=== PATIENT | female | born 1955 | race Caucasian/White ===

== ENCOUNTER 2023-04-08 18:57 | Emergency (ER) | payer MEDICARE ==
[~2023-04-08] VITALS: Ht 162.6 cm; Wt 50.0 kg
[2023-04-08] MEDS ORDERED: NS 1,500 ML in IV 1 EA IV ONE (19:15)
[2023-04-08 19:59] LABS: C REACTIVE PROTEIN QUANTITATIV 19.8 MG/DL (<1.0)
[2023-04-08] MEDS ORDERED: ONDANSETRON 4MG 2ML VIAL IV ONE (20:00)
[2023-04-08] MEDS ORDERED: KETOROLAC 30 MG/ML 1ML VIAL IV ONE (20:00)
[2023-04-08 20:01] LABS: ALBUMIN 2.6 G/DL (3.2-5.2); BILIRUBIN,DIRECT 0.3 MG/DL (<0.4); BILIRUBIN,TOTAL 0.9 MG/DL (0.3-1.2); CALCIUM LEVEL 8.9 MG/DL (8.3-10.6); CREATININE FOR GFR 1.54 MG/DL (0.55-1.30); GLOMERULAR FILTRATION RATE 35.7 (>45); HEMATOCRIT 39.3 % (36.0-47.0); HEMOGLOBIN 12.4 g/dl (12.0-15.5); MEAN CORPUSCULAR HGB CONC 31.6 g/dl (32.0-36.5); MEAN CORPUSCULAR VOLUME 94.9 fl (80.0-96.0); POTASSIUM SERUM 3.9 MMOL/L (3.5-5.1); RED BLOOD COUNT 4.14 10^6/uL (4.00-5.40); TOTAL PROTEIN 6.3 G/DL (5.7-8.2); WHITE BLOOD COUNT 25.5 10^3/uL (4.0-10.0)
[2023-04-08 20:02] LABS: BASO % 0.1 % (0.0-1.0); LYMPH # 0.3 10^3/uL (1.5-5.0); LYMPH % 1.3 % (24.0-44.0); MONO # 0.1 10^3/uL (0.0-0.8); MONO % 0.4 % (2.0-8.0); NEUTROPHILS # 24.6 10^3/uL (1.5-8.5); NEUTROPHILS % 96.4 % (36.0-66.0); PLATELET COUNT, AUTOMATED 533 10^3/uL (150-450)
[2023-04-08 20:17] LABS: INR 1.01; PROTHROMBIN TIME 13.5 SECONDS (12.5-14.5)
[2023-04-08 20:18] LABS: PARTIAL THROMBOPLASTIN TIME 30.4 SECONDS (24.8-34.2)
[2023-04-08] MEDS ORDERED: ISOVUE-370 76% 100ML VIAL As Ordered ONE (20:22)
[2023-04-08 20:34] LABS: PROCALCITONIN 1.43 ng/ml
[2023-04-08] MEDS ORDERED: PIPERACILLIN/TAZOBACTAM SOD 4.5 GM in D5W MINI-BAG PLUS 50 ML IV ONE (20:35)
[2023-04-08 21:55] LABS: ABG BASE EXCESS 1.8 (-2.0-2.0); ABG HCO3 25.4 MMOL/L (22.0-26.0); ABG O2 SATURATION 96.3 % (95.0-99.0); ABG PARTIAL PRESSURE CO2 36.3 mmHg (35.0-45.0); ABG PARTIAL PRESSURE O2 81.1 mmHg (75.0-100.0); ABG TOTAL CO2 26.5 MMOL/L (23.0-31.0); ABG pH (ARTERIAL) 7.463 UNITS (7.350-7.450)
[2023-04-08] MEDS ORDERED: VANCOMYCIN ORAL SOL 250MG/5ML ORAL SYRINGE PO STA (22:39)
[2023-04-08] MEDS ORDERED: metroNIDAZOLE 500 MG in IV 1 EA IV ONE (22:40)
[2023-04-08] MEDS ORDERED: DEXA4TA PO (23:17)
[2023-04-08] MEDS ORDERED: ENOX40IN3 SC (23:18)
[2023-04-08] MEDS ORDERED: HOME MED LIST COMPLETE! XX SCH (23:20)
[2023-04-09] MEDS ORDERED: NS 1,000 ML IV SCH (02:15)
[2023-04-09] MEDS ORDERED: VANCOMYCIN ORAL SOL 250MG/5ML ORAL SYRINGE PO SCH ×2 (05:50→06:00)
[2023-04-09 06:20] LABS: BASO % 0.1 % (0.0-1.0); HEMATOCRIT 33.4 % (36.0-47.0); HEMOGLOBIN 10.8 g/dl (12.0-15.5); LYMPH # 0.2 10^3/uL (1.5-5.0); LYMPH % 0.8 % (24.0-44.0); MEAN CORPUSCULAR HEMOGLOBIN 29.9 pg (27.0-33.0); MEAN CORPUSCULAR HGB CONC 32.3 g/dl (32.0-36.5); MEAN CORPUSCULAR VOLUME 92.5 fl (80.0-96.0); MONO # 0.1 10^3/uL (0.0-0.8); MONO % 0.3 % (2.0-8.0); NEUTROPHILS # 27.2 10^3/uL (1.5-8.5); NEUTROPHILS % 97.9 % (36.0-66.0); PLATELET COUNT, AUTOMATED 419 10^3/uL (150-450); RED BLOOD COUNT 3.61 10^6/uL (4.00-5.40); WHITE BLOOD COUNT 27.8 10^3/uL (4.0-10.0)
[2023-04-09 07:11] LABS: BILIRUBIN,TOTAL 0.5 MG/DL (0.3-1.2); CALCIUM LEVEL 7.1 MG/DL (8.3-10.6); GLOMERULAR FILTRATION RATE 58.7 (>45); POTASSIUM SERUM 3.6 MMOL/L (3.5-5.1); TOTAL PROTEIN 4.9 G/DL (5.7-8.2)
[2023-04-09 09:56] VITALS: BP 150/69; TEMP 98; O2SAT 98
== END 2023-04-09 09:57 | disposition short-term general hospital (02) ==
LOC: M ED 18:57
DX: A04.72 Enterocolitis due to Clostridium difficile, not specified as recurrent (principal); C56.9 Malignant neoplasm of unspecified ovary; K21.9 Gastro-esophageal reflux disease without esophagitis
CPT/HCPCS: 36600; 71045; 74177; 80048; 80053; 80076; 82150; 82803; 83605; 83690; 84145; 85025; 85610; 85730; 86140; 86850; 86900; 86901; 87040; 87486; 87507; 87581; 87633; 87798; 93005; 93041; 94760; 96361; 96365; 96375; 99285; J1885; J2405; J2543; J3490; Q9967

== ENCOUNTER 2024-05-30 19:43 | Emergency (ER) | payer MEDICARE, BC ==
[~2024-05-30] VITALS: Ht 160 cm; Wt 60.3 kg
[~2024-05-30 19:43] MED LIST: DEXA4TA PO; ENOX40IN3 SC
[2024-05-30 20:23] LABS: BASO % 0.6 % (0.0-1.0); EOS % 0.6 % (0.0-3.0); HEMATOCRIT 23.8 % (36.0-47.0); HEMOGLOBIN 7.8 g/dl (12.0-15.5); LYMPH # 1.2 10^3/uL (1.5-5.0); LYMPH % 23.1 % (24.0-44.0); MEAN CORPUSCULAR HEMOGLOBIN 35.8 pg (27.0-33.0); MEAN CORPUSCULAR HGB CONC 32.8 g/dl (32.0-36.5); MEAN CORPUSCULAR VOLUME 109.2 fl (80.0-96.0); MONO # 1.1 10^3/uL (0.0-0.8); MONO % 21.3 % (2.0-8.0); NEUTROPHILS # 2.8 10^3/uL (1.5-8.5); NEUTROPHILS % 54.2 % (36.0-66.0); PLATELET COUNT, AUTOMATED 302 10^3/uL (150-450); RED BLOOD COUNT 2.18 10^6/uL (4.00-5.40); WHITE BLOOD COUNT 5.2 10^3/uL (4.0-10.0)
[2024-05-30 20:50] LABS: LIPASE 58 U/L (12-53)
[2024-05-30 20:52] LABS: ALBUMIN 3.5 G/DL (3.2-5.2); ALKALINE PHOSPHATASE 90 U/L (46-116); ALT/SGPT 21 U/L (7.0-40); AST/SGOT 33 U/L (<34); BILIRUBIN,DIRECT < 0.1 MG/DL (<0.4); BILIRUBIN,TOTAL 0.3 MG/DL (0.3-1.2); BLOOD UREA NITROGEN 33 MG/DL (9-23); CALCIUM LEVEL 9.3 MG/DL (8.3-10.6); CARBON DIOXIDE LEVEL 25 MMOL/L (20-31); CHLORIDE LEVEL 109 MMOL/L (98-107); CREATININE FOR GFR 1.61 MG/DL (0.55-1.30); GLOMERULAR FILTRATION RATE 33.8 (>45); GLUCOSE, FASTING 98 MG/DL (74-106); POTASSIUM SERUM 4.9 MMOL/L (3.5-5.1); SODIUM LEVEL 140 MMOL/L (136-145); TOTAL PROTEIN 6.5 G/DL (5.7-8.2)
[2024-05-30 21:22] LABS: APPEARANCE, URINE CLEAR (CLEAR); BACTERIA, URINE AUTO NEGATIVE (NEGATIVE); BILIRUBIN, URINE AUTO NEGATIVE (NEGATIVE); BLOOD, URINE BLOOD NEGATIVE (NEGATIVE); COLOR, URINE STRAW (YELLOW); GLUCOSE, URINE (UA) AUTO 1+ mg/dL (NEGATIVE); KETONE, URINE AUTO NEGATIVE (NEGATIVE); LEUKOCYTE ESTERASE, URINE AUTO NEGATIVE (NEGATIVE); NITRITE, URINE AUTO NEGATIVE (NEGATIVE); PROTEIN, URINE AUTO 2+ mg/dL (NEGATIVE); RBC, URINE AUTO 0 /HPF (0-3); SPECIFIC GRAVITY URINE AUTO 1.008 (1.002-1.035); SQUAMOUS EPITHELIAL CELL UR AU 0 /HPF (0-6); UROBILINOGEN, URINE AUTO 0.2 mg/dL (0.0-2.0); WBC, URINE AUTO 0 /HPF (0-3)
[2024-05-30] MEDS: NS 1,000 ML IV ONE (21:55)
[2024-05-30 23:41] LABS: CALCIUM LEVEL 8.3 MG/DL (8.3-10.6); CREATININE FOR GFR 1.42 MG/DL (0.55-1.30); POTASSIUM SERUM 4.3 MMOL/L (3.5-5.1)
[2024-05-31 00:47] VITALS: BP 137/88; TEMP 97.9; O2SAT 98
== END 2024-05-31 00:48 | disposition home or self-care (01) ==
LOC: M ED 19:43
DX: K92.2 Gastrointestinal hemorrhage, unspecified (principal); N17.9 Acute kidney failure, unspecified; E86.0 Dehydration; Z85.43 Personal history of malignant neoplasm of ovary; Z79.899 Other long term (current) drug therapy